=== PATIENT | male | born 1990 | race Caucasian/White ===

== ENCOUNTER 2020-01-17 10:11 | Emergency (ER) | payer BC, SELFPAY ==
[2020-01-17 10:22] VITALS: BP 141/61; PULSE 73; RESP 16; TEMP 37; O2SAT 100
--- NOTE | 2020-01-17 10:29 | ED.DENTAL ---
HPI - Dental/Oral General Chief complaint: Dental/Oral Stated complaint: jaw swelling Time Seen by Provider: 01/17/20 10:29 Source: patient and RN notes reviewed History of Present Illness HPI Narrative: Patient is a 29-year-old male that presents the urgent care with complaints of lower right dental pain. Patient states he is also had some jaw swelling. Patient has never been to the dentist and has poor dental hygiene. Denies any fever, chills, nausea, vomiting. Patient states has been using ibuprofen for the pain. No other acute complaints. No acute distress noted. Patient had a plan of care. Related Data Allergies Allergy/AdvReac Type Severity Reaction Status Date / Time No Known Allergies Allergy Verified 01/17/20 10:32 Review of Systems Review of Systems: Narrative: CONSTITUTIONAL: Denies fever, chills, or sweats. EYES: Denies visual changes, redness, or discharge. ENT: Denies rhinorrhea, congestion, sore throat, or otalgia. Report of the lower right jaw swelling and lower right dental pain and swelling CARDIOVASCULAR: Denies chest pain, palpitations, or edema. RESPIRATORY: Denies cough or dyspnea. GASTROINTESTINAL: Denies abdominal pain, nausea, vomiting, or diarrhea. GENITOURINARY: Denies dysuria or hematuria. SKIN: Denies rash or itching. MUSCULOSKELETAL: Denies back pain, joint pain, or myalgia. NEUROLOGIC: Denies headache, numbness, or weakness. All other systems reviewed are negative, except as documented in HPI. PMFSH Comments At the time of my signature, I reviewed and agree with the nursing past medical, surgical, social, and family history. There is no relevant family history pertinent to the patient complaint. Exam Narrative: Exam Narrative: GENERAL: This is a well-nourished, well-developed patient, in no apparent distress. HEAD: normocephalic, atraumatic. EYES: PERRL. Sclera clear/white. Vision is grossly intact. EARS: External ears normal NOSE: External nose normal with no obvious nasal discharge THROAT: Mucous membranes moist, posterior pharynx clear. poor dentition and multiple caries throughout; notable mild erythema and abscess noted to the buccal aspect of the 1 st lower right molar (#3) NECK: Neck supple, non-tender without lymphadenopathy;mild lower right jaw edema CARDIOVASCULAR: Regular rate and rhythm without murmurs, gallops, or rubs. RESPIRATORY: Clear to auscultation. Breath sounds equal bilaterally. No wheezes, rales, or rhonchi. SKIN: warm, intact with no suspicious lesions or rash, good texture and turgor. NEURO: awake, alert, and oriented to person, place and time. There were no obvious focal neurologic abnormalities. EXTREMITIES: No clubbing, cyanosis, or edema. Course Vital Signs Vital signs: Vital Signs Temperature 98.6 F 01/17/20 10:22 Pulse Rate 73 01/17/20 10:22 Respiratory Rate 16 01/17/20 10:22 Blood Pressure 141/61 H 01/17/20 10:22 Pulse Oximetry 100 01/17/20 10:22 Temperature 98.6 F 01/17/20 10:22 Pulse Rate 73 01/17/20 10:22 Respiratory Rate 16 01/17/20 10:22 Blood Pressure 141/61 H 01/17/20 10:22 Pulse Oximetry 100 01/17/20 10:22 Reviewed?patient is informed that they may have pre-hypertension or hypertension based on a blood pressure reading in the department. I recommend the patient call the primary care provider listed on their discharge instructions or a physician of their choice this week to arrange follow-up for further evaluation of possible pre-hypertension or hypertension. MDM - Dental/Oral MDM Narrative Medical decision making narrative: Advised the patient to complete the oral antibiotic regime as prescribed. Make sure to eat and drink with the medication. Use [id number] prevention mouthwash twice a day as directed. [place] and floss twice a day. The oral antibiotic will fix the current abscess infection, however you will need to follow-up with a dentist due to multiple dental caries. Follow-up with PCP within 2 to 5 da
== END 2020-01-17 10:44 | disposition home or self-care (01) ==
PROVIDERS: Emergency Provider Nurse Practitioner Family
DX: K04.7 Periapical abscess without sinus (principal); K02.9 Dental caries, unspecified; R03.0 Elevated blood-pressure reading, without diagnosis of hypertension
CPT/HCPCS: 99213; G0463